=== PATIENT | female | born 1990 | race Hispanic/Latino ===

== ENCOUNTER 2020-07-06 07:44 | Day surgery (SDC) | payer MEDICAID, OTHER ==
[2020-07-06] VITALS (14 sets, daily range): BP systolic 100–130; BP diastolic 47–82
[2020-07-06] MEDS ORDERED: HYDROMORPHONE HCL 0.5 MG/0.5 ML ML ONE (08:06)
[2020-07-06] MEDS ORDERED: METOCLOPRAMIDE 10 MG/2 ML VIAL ONE (08:06)
[2020-07-06 08:10] LABS: BASOPHILS % (AUTO) 0.3 % (0.0-5.0); EOSINOPHILS % (AUTO) 1.2 % (0.0-8.0); HEMATOCRIT 39.4 % (36-48); LYMPHOCYTES % (AUTO) 27.7 % (21.0-51.0); MEAN CORPUSCULAR VOLUME 93.8 fL (79-99); MONOCYTES % (AUTO) 5.1 % (3.0-13.0); NEUTROPHILS % (AUTO) 65.5 % (40.0-77.0); PLATELET COUNT (AUTO) 299 K/uL (130-400); RED CELL DISTRIBUTION WIDTH 13.3 % (11.0-15.5); WHITE BLOOD COUNT (AUTO) 9.7 K/uL (4.8-10.8)
[2020-07-06 08:19] LABS: CREATININE 0.9 mg/dL (0.5-1.5); POTASSIUM 3.5 mmol/L (3.5-5.1)
[2020-07-06] MEDS ORDERED: SODIUM CHLORIDE 0.9% 1000ML 1,000 ML IV ONE (08:19)
[2020-07-06 08:46] LABS: ALBUMIN 4.4 g/dL (3.5-5.0); BILIRUBIN,TOTAL 0.5 mg/dL (0.2-1.0); TOTAL PROTEIN, SERUM 7.9 g/dL (6.0-8.3)
[2020-07-06] MEDS ORDERED: ROCURONIUM 10MG/1ML SYR 10 MG/ML ML ONE (10:36)
[2020-07-06] MEDS ORDERED: PROPOFOL 10 MG/ML 20ML VIAL IV ONE (10:36)
[2020-07-06] MEDS ORDERED: SUCCINYLCHOLINE CHLORIDE 20 MG/ML 10 ML VIAL ONE (10:36)
[2020-07-06] MEDS ORDERED: FENTANYL CITRATE PF 50 MCG/1 ML 2ML VIAL ONE ×2 (10:36→12:14)
[2020-07-06] MEDS ORDERED: LIDOCAINE PF 2% 5ML ABBOJECT ONE (10:36)
[2020-07-06] MEDS ORDERED: CEFAZOLIN SODIUM 1 GM VIAL ONE ×2 (10:46→11:18)
[2020-07-06] MEDS ORDERED: CALDOLOR 800MG+NS 250ML 250 ML IV ONE (10:47)
[2020-07-06] MEDS ORDERED: BUPIVACAINE/PF 0.25% 30ML VIAL IJ ONE (10:50)
[2020-07-06] MEDS ORDERED: PHENYLEPHRINE HCL 10 MG/ML 1ML VIAL IV ONE (11:16)
[2020-07-06] MEDS ORDERED: SODIUM CHLORIDE 0.9% 10 ML VIAL ONE (11:16)
[2020-07-06] MEDS ORDERED: MEPERIDINE-PF 25 MG/ML SYG ONE (11:52)
[2020-07-06] MEDS ORDERED: NEOSTIGMINE 5MG/5ML SYR IV ONE (11:57)
[2020-07-06] MEDS ORDERED: GLYCOPYRROLATE 1 MG/5 ML SYRINGE ONE (11:57)
[2020-07-06] MEDS ORDERED: DEXAMETHASONE SOD PHOSPHATE 4 MG/ML 1ML VIAL ONE (11:58)
[2020-07-06] MEDS ORDERED: ONDANSETRON HCL 4 MG/2 ML VIAL ONE (11:59)
[2020-07-06] MEDS: LACTATED RINGERS 1000ML 1,000 ML IV ONE (12:01)
== END 2020-07-06 15:55 | disposition home or self-care (01) ==
LOC: EDH 07:44 → DAH 10:25
PROVIDERS: ATTEND Obstetrics & Gynecology
DX: O00.102 Left tubal pregnancy without intrauterine pregnancy (principal)
CPT/HCPCS: 36415; 59151; 76805; 80053; 83690; 84702; 85025; 86850; 86900; 86901; A4215; A4216; A4221; A4222; A4223 ×3; A4344; A4606; A4649 ×3; A4663; A4930; C1769 ×2; G0168; J0330; J0690 ×2; J1100; J1170; J1741; J2001; J2175; J2370; J2405; J2704; J2710; J2765; J3010 ×2; J3490 ×2; J7030 ×2; J7120 ×2